=== PATIENT | female | born 1965 | race African-American/Black ===

== ENCOUNTER 2018-07-26 06:32 | Inpatient (IN) | payer MEDICAID ==
[2018-07-26] VITALS (37 sets, daily range): BP systolic 86–141; BP diastolic 29–111
[~2018-07-26] VITALS: Ht 160 cm; Wt 49.9 kg
[2018-07-26] MEDS ORDERED: METHYLPREDNISOLONE SOD SUCC 125 MG/2 ML VIAL IV STA (06:38)
[2018-07-26] MEDS ORDERED: MAGNESIUM 2 G PREMIX 50 ML IV ONE (06:45)
[2018-07-26] MEDS ORDERED: IPRATROPIUM/ALBUTEROL 0.5-3(2.5)MG/3ML NEB HHN ONE (06:45)
[2018-07-26] MEDS ORDERED: SUCCINYLCHOLINE CHLORIDE 200MG/10ML IV ONE ×2 (07:00→13:25)
[2018-07-26] MEDS ORDERED: ETOMIDATE 2MG/ML 10ML VIAL IV ONE ×2 (07:00→13:25)
[2018-07-26] MEDS: PROPOFOL 10MG/ML 100ML 100 ML IV SCH ×2 (07:17→10:20)
[2018-07-26 07:24] LABS: EOSINOPHILS % 11.9 % (0.0-5.0); HEMATOCRIT. 49.2 % (36.0-48.0); HEMOGLOBIN. 15.4 g/dL (12.0-16.0); LYMPHOCYTES % 44.5 % (20.0-50.0); MEAN CORPUSCULAR HEMOGLOBIN 26.1 pg (28.0-32.0); MEAN CORPUSCULAR VOLUME 83.6 fL (81.0-99.0); MEAN PLATELET VOLUME 8.7 fl (7.4-10.4); MONOCYTES % 5.3 % (2.0-8.0); NEUTROPHILS % 37.3 % (40.0-76.0); PLATELET 172 x1000/uL (130-400); RED BLOOD CELL COUNT 5.89 mill/uL (4.2-5.4); RED CELL DISTRIBUTION WIDTH 15.2 % (11.6-14.6)
[2018-07-26 07:31] LABS: CHLORIDE 104 mEq/L (98-107)
[2018-07-26 07:32] LABS: PARTIAL THROMBOPLASTIN TIME 25.3 sec (23.4-31.0); PROTHROMBIN TIME 10.4 sec (9.1-11.1)
[2018-07-26 07:35] LABS: ETHANOL BLOOD < 10 mg/dL
[2018-07-26] MEDS: MIDAZOLAM HCL 2 MG/2 ML VIAL IV ONE ×2 (09:09→09:45)
[2018-07-26 09:10] LABS: BG BASE EXCESS -5.8 mmol/L (-2.0-2.0); BG DEOXYHEMOGLOBIN 0.3 % (0.0-5.0); BG FRACTION INSPIRED OXYGEN 100; BG HCO3 ACT 23.3 mmol/L (22.0-26.0); BG METHEMOGLOBIN 0.4 % (0.0-1.5); BG OXYGEN SATURATION 99.7 % (92.0-98.5); BG OXYHEMOGLOBIN 98.3 % (94.0-97.0); BG PCO2 60.9 mmHg (35.0-45.0); BG PH 7.201 (7.350-7.450); BG PO2 > 602.7 mmHg (75.0-100.0); BG SAMPLE SITE RIGHT BRACHIAL; BG TIDAL VOLUME(mL) 450 mL; BG TOTAL HEMOGLOBIN 15.2 g/dL (12.0-18.0); BG VENT MODE VENT - A/C; BG VENT RATE 14 set
[2018-07-26] MEDS ORDERED: MIDAZOLAM HCL 2 MG/2 ML VIAL ONE (09:15)
[2018-07-26] MEDS ORDERED: MIDAZOLAM HCL 2 MG/2 ML VIAL IV ONE (09:15)
[2018-07-26] MEDS ORDERED: MIDAZOLAM HCL 50 MG in DEXTROSE 5% WATER 40 ML IV ONE ×3 (09:15→16:30)
[2018-07-26] MEDS ORDERED: PANTOPRAZOLE SODIUM 40 MG/VIAL IV ONE (09:15)
[2018-07-26] MEDS ORDERED: PANTOPRAZOLE 80 MG in SODIUM CHLORIDE 0.9% 100 ML IV SCH ×2 (09:15→09:45)
[2018-07-26 10:11] LABS: *AMPHETAMINES SCREEN URINE NEGATIVE (NEGATIVE)
[2018-07-26 10:12] LABS: *BARBITURATES SCREEN URINE NEGATIVE (NEGATIVE); *BENZODIAZEPINES SCREEN URINE NEGATIVE (NEGATIVE); *COCAINE SCREEN URINE PRESUMTIVE POSITIVE (NEGATIVE); CANNABINOID URINE SCREEN NEGATIVE (NEGATIVE); METHADONE URINE SCREEN NEGATIVE (NEGATIVE); OPIATES URINE SCREEN NEGATIVE (NEGATIVE); PHENCYCLIDINE URINE SCREEN NEGATIVE (NEGATIVE)
[2018-07-26] MEDS ORDERED: IPRATROPIUM/ALBUTEROL 0.5-3(2.5)MG/3ML NEB HHN PRN (11:15)
[2018-07-26] MEDS ORDERED: DEXTROSE 50% WATER 50ML SYRINGE IV PRN (11:45)
[2018-07-26] MEDS: BLOOD SUGAR DIAGNOSTIC STRIP TEST SCH ×2 (11:47→18:39)
[2018-07-26] MEDS: IPRATROPIUM/ALBUTEROL 0.5-3(2.5)MG/3ML NEB HHN SCH ×3 (12:00→20:13)
[2018-07-26] MEDS: METHYLPREDNISOLONE SOD SUCC 125 MG/2 ML VIAL IV SCH ×3 (12:00→23:22)
[2018-07-26] MEDS: INSULIN LISPRO 100 UNITS/ML SUBCUT SCH ×2 (13:02→18:20)
[2018-07-26] MEDS: DEXT 5%/LACTATED RINGERS 1,000 ML IV SCH (13:16)
[2018-07-26 13:26] LABS: BG BASE EXCESS -4.3 mmol/L (-2.0-2.0); BG CARBOXYHEMOGLOBIN 0.7 % (0.5-1.5); BG METHEMOGLOBIN 0.3 % (0.0-1.5); BG OXYGEN SATURATION 90.9 % (92.0-98.5); BG PCO2 57.1 mmHg (35.0-45.0); BG PH 7.242 (7.350-7.450); BG PO2 67.8 mmHg (75.0-100.0); BG SAMPLE SITE RIGHT RADIAL; BG TIDAL VOLUME(mL) 450 mL; BG TOTAL HEMOGLOBIN 15.5 g/dL (12.0-18.0); BG VENT MODE VENT - A/C; BG VENT RATE 18 set
[2018-07-26] MEDS ORDERED: ONDANSETRON HCL 4MG/2ML INJ IV PRN (13:30)
[2018-07-26] MEDS ORDERED: DOCUSATE SODIUM 100MG CAPSULE PO PRN (13:30)
[2018-07-26] MEDS ORDERED: MAGNESIUM/ALUMINUM HYDROXIDE/SIMETHICONE 30ML UDC PO PRN (13:30)
[2018-07-26] MEDS ORDERED: CLONIDINE 0.1MG TABLET PO PRN (13:30)
[2018-07-26] MEDS: PROPOFOL 10MG/ML 100ML 100 ML IV PRN (19:04)
[2018-07-26] MEDS ORDERED: FENTANYL CITRATE/PF 500 MCG in SODIUM CHLORIDE 0.9% 40 ML IV PRN (19:30)
[2018-07-26] MEDS: PANTOPRAZOLE 80 MG in SODIUM CHLORIDE 0.9% 100 ML IV SCH (19:30)
[2018-07-26] MEDS: FENTANYL CITRATE/PF 500 MCG in SODIUM CHLORIDE 0.9% 40 ML IV PRN (19:33)
[2018-07-26] MEDS ORDERED: NOREPINEPHRINE 8 MG in DEXT 5% WATER 492 ML IV PRN (20:00)
[2018-07-26] MEDS ORDERED: NOREPINEPHRINE 4 MG in DEXT 5% WATER 246 ML IV PRN (20:00)
[2018-07-26] MEDS: SODIUM CHLORIDE 0.9% 500 ML IV NR ×4 (20:29→23:22)
[2018-07-26] MEDS ORDERED: NA PHOS,M-B/NA PHOS,DI-BA ENEMA 118ML PR PRN (21:00)
[2018-07-26] MEDS: LEVOFLOXACIN 500MG PREMIX 100 ML IV SCH (23:21)
[2018-07-27] VITALS (69 sets, daily range): BP systolic 90–136; BP diastolic 18–95
[2018-07-27] MEDS: IPRATROPIUM/ALBUTEROL 0.5-3(2.5)MG/3ML NEB HHN SCH ×7 (00:44→23:48)
[2018-07-27] MEDS: PROPOFOL 10MG/ML 100ML 100 ML IV PRN ×4 (01:18→20:01)
[2018-07-27] MEDS: DEXT 5%/LACTATED RINGERS 1,000 ML IV SCH (03:23)
[2018-07-27 04:04] LABS: CLARITY URINE CLOUDY (CLEAR); COLOR URINE YELLOW (YELLOW); KETONES URINE NEGATIVE (NEGATIVE); LEUKOCYTE ESTERASE URINE NEGATIVE (NEGATIVE); NITRITE URINE NEGATIVE (NEGATIVE); OCCULT BLOOD URINE 2+ (NEGATIVE); PROTEIN URINE NEGATIVE (NEGATIVE); SPECIFIC GRAVITY URINE 1.014 (1.005-1.030); UROBILINOGEN URINE 0.2 E.U./dL (0.2-1.0)
[2018-07-27] MEDS: FENTANYL CITRATE/PF 500 MCG in SODIUM CHLORIDE 0.9% 40 ML IV PRN ×4 (04:17→23:34)
[2018-07-27] MEDS: PANTOPRAZOLE 80 MG in SODIUM CHLORIDE 0.9% 100 ML IV SCH (05:30)
[2018-07-27] MEDS: INSULIN LISPRO 100 UNITS/ML SUBCUT SCH ×4 (06:00→18:00)
[2018-07-27] MEDS: METHYLPREDNISOLONE SOD SUCC 125 MG/2 ML VIAL IV SCH (06:07)
[2018-07-27] MEDS: BLOOD SUGAR DIAGNOSTIC STRIP TEST SCH ×4 (06:07→18:42)
[2018-07-27 06:53] LABS: BASOPHILS % 0.2 % (0.0-2.0); EOSINOPHILS % 0.1 % (0.0-5.0); HEMATOCRIT. 42.4 % (36.0-48.0); HEMOGLOBIN. 13.5 g/dL (12.0-16.0); LYMPHOCYTES % 10.7 % (20.0-50.0); MEAN CORPUSCULAR HEMOGLOBIN 26.3 pg (28.0-32.0); MEAN CORPUSCULAR VOLUME 82.3 fL (81.0-99.0); MEAN PLATELET VOLUME 8.6 fl (7.4-10.4); MONOCYTES % 6.3 % (2.0-8.0); NEUTROPHILS % 82.7 % (40.0-76.0); PLATELET 138 x1000/uL (130-400); RED BLOOD CELL COUNT 5.15 mill/uL (4.2-5.4); RED CELL DISTRIBUTION WIDTH 15.3 % (11.6-14.6)
[2018-07-27 07:00] LABS: CHLORIDE 111 mEq/L (98-107)
[2018-07-27 07:12] LABS: CREATINE KINASE 119 IU/L (26-192)
[2018-07-27 07:14] LABS: CREATINE KINASE MB FRACTION 4.1 ng/mL (0.5-3.6)
[2018-07-27 08:10] LABS: BG BASE EXCESS -1.4 mmol/L (-2.0-2.0); BG CARBOXYHEMOGLOBIN 0.6 % (0.5-1.5); BG FRACTION INSPIRED OXYGEN 50; BG HCO3 ACT 23.7 mmol/L (22.0-26.0); BG METHEMOGLOBIN 0.1 % (0.0-1.5); BG OXYHEMOGLOBIN 97.3 % (94.0-97.0); BG PCO2 41.1 mmHg (35.0-45.0); BG PH 7.378 (7.350-7.450); BG PO2 110.5 mmHg (75.0-100.0); BG SAMPLE SITE RIGHT BRACHIAL; BG TIDAL VOLUME(mL) 450 mL; BG TOTAL HEMOGLOBIN 13.6 g/dL (12.0-18.0); BG VENT MODE VENT - A/C; BG VENT RATE 22 set
[2018-07-27] MEDS ORDERED: SODIUM POLYSTYRENE SULFONATE 15 G/60 ML BOT NG ONE (09:45)
[2018-07-27] MEDS ORDERED: SODIUM POLYSTYRENE SULFONATE 15 G/60 ML BOT NG NR (10:00)
[2018-07-27] MEDS: METHYLPREDNISOLONE SOD SUCC 40 MG/ML VIAL IV SCH ×2 (10:18→18:43)
[2018-07-27] MEDS: DEXT 5%/0.9% NACL 1,000 ML IV SCH (10:19)
[2018-07-27] MEDS: PHENYTOIN SODIUM 100MG/2ML VIAL IV SCH ×2 (14:24→22:05)
[2018-07-27] MEDS: LEVOFLOXACIN 500MG PREMIX 100 ML IV SCH (20:00)
[2018-07-28] VITALS (35 sets, daily range): BP systolic 82–133; BP diastolic 47–88
[2018-07-28] MEDS: DEXT 5%/0.9% NACL 1,000 ML IV SCH ×3 (01:15→15:57)
[2018-07-28] MEDS: METHYLPREDNISOLONE SOD SUCC 40 MG/ML VIAL IV SCH ×3 (01:49→17:31)
[2018-07-28] MEDS: FENTANYL CITRATE/PF 500 MCG in SODIUM CHLORIDE 0.9% 40 ML IV PRN (03:06)
[2018-07-28] MEDS: IPRATROPIUM/ALBUTEROL 0.5-3(2.5)MG/3ML NEB HHN SCH ×5 (04:12→20:32)
[2018-07-28 05:57] LABS: BASOPHILS % 0.5 % (0.0-2.0); HEMATOCRIT. 37.5 % (36.0-48.0); HEMOGLOBIN. 12.1 g/dL (12.0-16.0); LYMPHOCYTES % 16.4 % (20.0-50.0); MEAN CORPUSCULAR HEMOGLOBIN 26.2 pg (28.0-32.0); MEAN CORPUSCULAR VOLUME 81.4 fL (81.0-99.0); MEAN PLATELET VOLUME 8.9 fl (7.4-10.4); MONOCYTES % 11.1 % (2.0-8.0); PLATELET 139 x1000/uL (130-400); RED BLOOD CELL COUNT 4.61 mill/uL (4.2-5.4)
[2018-07-28 06:19] LABS: CHLORIDE 113 mEq/L (98-107)
[2018-07-28 08:22] LABS: BG CARBOXYHEMOGLOBIN 0.3 % (0.5-1.5); BG DEOXYHEMOGLOBIN 1.8 % (0.0-5.0); BG FRACTION INSPIRED OXYGEN 40; BG HCO3 ACT 25.2 mmol/L (22.0-26.0); BG METHEMOGLOBIN 0.3 % (0.0-1.5); BG OXYGEN SATURATION 98.2 % (92.0-98.5); BG OXYHEMOGLOBIN 97.6 % (94.0-97.0); BG PCO2 43.5 mmHg (35.0-45.0); BG PEEP (cmH2O) 0 cmH2O; BG PH 7.381 (7.350-7.450); BG PO2 129.5 mmHg (75.0-100.0); BG SAMPLE SITE RIGHT RADIAL; BG TIDAL VOLUME(mL) 450 mL; BG VENT MODE VENT - A/C; BG VENT RATE 18 set
[2018-07-28] MEDS: PANTOPRAZOLE SODIUM 40 MG/VIAL IV SCH (09:12)
[2018-07-28] MEDS: PHENYTOIN SODIUM 100MG/2ML VIAL IV SCH ×3 (09:27→21:20)
[2018-07-28 11:56] LABS: BG BASE EXCESS 0.1 mmol/L (-2.0-2.0); BG CARBOXYHEMOGLOBIN 0.3 % (0.5-1.5); BG DEOXYHEMOGLOBIN 4.6 % (0.0-5.0); BG FRACTION INSPIRED OXYGEN 40; BG HCO3 ACT 25.4 mmol/L (22.0-26.0); BG METHEMOGLOBIN 0.2 % (0.0-1.5); BG OXYGEN SATURATION 95.4 % (92.0-98.5); BG OXYHEMOGLOBIN 94.9 % (94.0-97.0); BG PEEP (cmH2O) 0 cmH2O; BG PO2 83.9 mmHg (75.0-100.0); BG PRESSURE SUPPORT 8; BG SAMPLE SITE RIGHT RADIAL; BG TOTAL HEMOGLOBIN 12.4 g/dL (12.0-18.0); BG VENT MODE VENT - CPAP
[2018-07-28] MEDS: INSULIN LISPRO 100 UNITS/ML SUBCUT SCH ×4 (12:00→17:32)
[2018-07-28] MEDS: BLOOD SUGAR DIAGNOSTIC STRIP TEST SCH ×5 (12:25→23:30)
[2018-07-28] MEDS: METRONIDAZOLE 500 MG PREMIX 100 ML IV SCH ×2 (12:41→17:32)
[2018-07-28] MEDS: ACETAMINOPHEN 325MG TABLET PO PRN (17:31)
[2018-07-28] MEDS ORDERED: KETOROLAC 30MG/ML VIAL IV PRN (18:30)
[2018-07-28] MEDS: LEVOFLOXACIN 500MG PREMIX 100 ML IV SCH (20:27)
[2018-07-29] VITALS (19 sets, daily range): BP systolic 98–126; BP diastolic 54–83
[2018-07-29] MEDS: IPRATROPIUM/ALBUTEROL 0.5-3(2.5)MG/3ML NEB HHN SCH ×6 (00:19→21:51)
[2018-07-29] MEDS: METHYLPREDNISOLONE SOD SUCC 40 MG/ML VIAL IV SCH ×3 (01:01→21:20)
[2018-07-29] MEDS: METRONIDAZOLE 500 MG PREMIX 100 ML IV SCH ×3 (01:01→18:30)
[2018-07-29 05:24] LABS: BASOPHILS % 0.3 % (0.0-2.0); HEMATOCRIT. 35.4 % (36.0-48.0); HEMOGLOBIN. 11.4 g/dL (12.0-16.0); LYMPHOCYTES % 9.3 % (20.0-50.0); MEAN CORPUSCULAR HEMOGLOBIN 25.9 pg (28.0-32.0); MEAN CORPUSCULAR VOLUME 80.7 fL (81.0-99.0); MEAN PLATELET VOLUME 9.1 fl (7.4-10.4); MONOCYTES % 4.3 % (2.0-8.0); NEUTROPHILS % 86.1 % (40.0-76.0); PLATELET 136 x1000/uL (130-400); RED BLOOD CELL COUNT 4.39 mill/uL (4.2-5.4); RED CELL DISTRIBUTION WIDTH 14.9 % (11.6-14.6)
[2018-07-29 05:43] LABS: CHLORIDE 107 mEq/L (98-107)
[2018-07-29 05:46] LABS: PHOSPHORUS 2.4 mg/dL (2.5-4.9)
[2018-07-29] MEDS: INSULIN LISPRO 100 UNITS/ML SUBCUT SCH ×4 (06:00→18:00)
[2018-07-29] MEDS: BLOOD SUGAR DIAGNOSTIC STRIP TEST SCH ×4 (06:14→23:53)
[2018-07-29] MEDS: PHENYTOIN SODIUM 100MG/2ML VIAL IV SCH ×3 (06:18→21:24)
[2018-07-29] MEDS: DEXT 5%/0.9% NACL 1,000 ML IV SCH (06:27)
[2018-07-29] MEDS: PANTOPRAZOLE SODIUM 40 MG/VIAL IV SCH (08:51)
[2018-07-29] MEDS ORDERED: MAGNESIUM 2 G PREMIX 50 ML IV ONE (10:15)
[2018-07-29] MEDS ORDERED: MAGNESIUM SULFATE 2 GM in DEXTROSE 5% WATER 50 ML IV NR (11:30)
[2018-07-29] MEDS: ACETAMINOPHEN 325MG TABLET PO PRN (17:23)
[2018-07-29] MEDS: GUAIFENESIN 200MG/10ML SUGAR FREE UDC PO PRN ×2 (17:24→23:53)
[2018-07-29] MEDS: LEVOFLOXACIN 500MG PREMIX 100 ML IV SCH (21:20)
[2018-07-30] VITALS (7 sets, daily range): BP systolic 105–115; BP diastolic 50–72
[2018-07-30] MEDS: IPRATROPIUM/ALBUTEROL 0.5-3(2.5)MG/3ML NEB HHN SCH ×5 (00:45→16:30)
[2018-07-30] MEDS: METRONIDAZOLE 500 MG PREMIX 100 ML IV SCH ×3 (02:04→18:18)
[2018-07-30] MEDS: INSULIN LISPRO 100 UNITS/ML SUBCUT SCH ×4 (06:00→18:00)
[2018-07-30] MEDS: BLOOD SUGAR DIAGNOSTIC STRIP TEST SCH ×3 (06:00→18:00)
[2018-07-30] MEDS: GUAIFENESIN 200MG/10ML SUGAR FREE UDC PO PRN ×2 (06:42→15:34)
[2018-07-30] MEDS: PHENYTOIN SODIUM 100MG/2ML VIAL IV SCH (06:54)
[2018-07-30] MEDS: METHYLPREDNISOLONE SOD SUCC 40 MG/ML VIAL IV SCH (09:23)
[2018-07-30] MEDS: PANTOPRAZOLE SODIUM 40 MG/VIAL IV SCH (09:23)
[2018-07-30] MEDS: ACETAMINOPHEN 325MG TABLET PO PRN (14:09)
[2018-07-30] MEDS: PHENYTOIN SODIUM EXTENDED 100MG CAPSULE PO SCH ×2 (15:34→20:48)
[2018-07-30] MEDS: BENZONATATE 100MG CAPSULE PO SCH ×2 (18:21→20:48)
[2018-07-30] MEDS: LEVOFLOXACIN 500MG PREMIX 100 ML IV SCH (20:49)
[2018-07-30] MEDS: DIPHENHYDRAMINE 50MG/ML VIAL IV PRN (20:59)
[2018-07-30] MEDS ORDERED: LEVOFLOXACIN 500MG TABLET PO SCH (21:00)
[2018-07-31] VITALS: BP 107/66
[2018-07-31] MEDS: IPRATROPIUM/ALBUTEROL 0.5-3(2.5)MG/3ML NEB HHN SCH ×5 (00:48→16:29)
[2018-07-31] MEDS: METRONIDAZOLE 500 MG PREMIX 100 ML IV SCH ×2 (01:27→11:11)
[2018-07-31] MEDS: GUAIFENESIN 200MG/10ML SUGAR FREE UDC PO PRN (02:03)
[2018-07-31 04:00] VITALS: BP 115/60
[2018-07-31] MEDS: INSULIN LISPRO 100 UNITS/ML SUBCUT SCH ×4 (06:00→17:19)
[2018-07-31] MEDS: PHENYTOIN SODIUM EXTENDED 100MG CAPSULE PO SCH ×2 (06:24→14:13)
[2018-07-31] MEDS: BENZONATATE 100MG CAPSULE PO SCH ×2 (06:24→14:13)
[2018-07-31] MEDS: BLOOD SUGAR DIAGNOSTIC STRIP TEST SCH ×4 (06:27→17:20)
[2018-07-31 08:00] VITALS: BP 100/46
[2018-07-31] MEDS: DIPHENHYDRAMINE 50MG/ML VIAL IV PRN (08:59)
[2018-07-31] MEDS ORDERED: FAMOTIDINE 20MG/2ML VIAL IV SCH (09:00)
[2018-07-31] MEDS ORDERED: METHYLPREDNISOLONE SOD SUCC 40 MG/ML VIAL IV SCH (09:00)
[2018-07-31 12:27] VITALS: BP_SYST 102; BP_SYST 156; BP_DIAS 58; BP_DIAS 78
[2018-07-31] MEDS: METRONIDAZOLE 500MG TABLET PO SCH ×2 (15:52→15:53)
[2018-07-31 16:13] VITALS: BP 104/56
[2018-07-31] MEDS ORDERED: LEVOFLOXACIN 500MG TABLET PO SCH (21:00)
== END 2018-07-31 17:25 | disposition home or self-care (01) | DRG 816 ==
LOC: ER 06:32 → EDBEDREQTM 06:57 → EDBEDREQ 06:57 → EDBEDREQSVC 06:57 → EDBEDREQ 09:11 → EDBEDREQTM 09:11 → ENRESERV 15:22 → EDBD 17:29 → CVICU 17:29 → 6WST 07-29 18:18
PROVIDERS: ADMIT Internal Medicine; ATTEND Internal Medicine
PROC: 5A1945Z Respiratory Ventilation, 24-96 Consecutive Hours (ICD-10-PCS; principal; 2018-07-26)
PROC: 0BH17EZ Insertion of Endotracheal Airway into Trachea, Via Natural or Artificial Opening (ICD-10-PCS; 2018-07-26)
PROC: 5A09357 Assistance with Respiratory Ventilation, Less than 24 Consecutive Hours, Continuous Positive Airway Pressure (ICD-10-PCS; 2018-07-26)
DX: T40.5X1A Poisoning by cocaine, accidental (unintentional), initial encounter (principal); J96.00 Acute respiratory failure, unspecified whether with hypoxia or hypercapnia; J69.0 Pneumonitis due to inhalation of food and vomit; J68.0 Bronchitis and pneumonitis due to chemicals, gases, fumes and vapors; E87.2 Acidosis; D72.1 Eosinophilia; E87.5 Hyperkalemia; R00.1 Bradycardia, unspecified; R73.9 Hyperglycemia, unspecified; Y92.89 Other specified places as the place of occurrence of the external cause; G40.89 Other seizures
CPT/HCPCS: 31500; 36415; 36600; 71045; 80048; 80061; 80185; 80305; 82375; 82550; 82553; 82805; 82962; 83036; 83735; 83880; 84100; 84478; 84484; 86850; 86900; 87070; 87804; 92610; 93970; 94002; 94003; 94640; 94660; 96361; 96365; 96367; 96375; 97162; 99291; C9113; G0482; J0330; J1165; J1200; J1815; J1956; J2250; J2704; J2920; J2930; J3010; J3475; J3490; J7040; J7042; J7050; J7060; J7620

== ENCOUNTER 2018-11-11 19:49 | Emergency (ER) | payer MEDICAID ==
[~2018-11-11] VITALS: Ht 170.2 cm; Wt 64.0 kg
[2018-11-11 19:55] VITALS: BP 106/48
== END 2018-11-12 00:30 | disposition left against medical advice (07) ==
LOC: ER 19:49
DX: Z53.21 Procedure and treatment not carried out due to patient leaving prior to being seen by health care provider (principal)

== ENCOUNTER 2020-02-01 20:13 | Emergency (ER) | payer MEDICAID ==
[~2020-02-01] VITALS: Ht 170.2 cm; Wt 59.0 kg
[2020-02-01] MEDS ORDERED: ONDANSETRON HCL 4MG/2ML INJ IV STA (20:49)
[2020-02-01] MEDS ORDERED: SODIUM CHLORIDE 0.9% 1,000 ML IV ONE (20:49)
[2020-02-01] MEDS ORDERED: LORAZEPAM 2MG/ML CPJ IV ONE (21:00)
[2020-02-01 22:38] LABS: BASOPHILS % 1.7 % (0.0-2.0); EOSINOPHILS % 3.6 % (0.0-5.0); HEMATOCRIT. 41.2 % (36.0-48.0); HEMOGLOBIN. 13.7 g/dL (12.0-16.0); LYMPHOCYTES % 28.4 % (20.0-50.0); MEAN CORPUSCULAR HEMOGLOBIN 26.5 pg (28.0-32.0); MEAN CORPUSCULAR VOLUME 79.4 fL (81.0-99.0); MEAN PLATELET VOLUME 9.2 fl (7.4-10.4); MONOCYTES % 7.5 % (2.0-8.0); NEUTROPHILS % 58.8 % (40.0-76.0); PLATELET 166 x1000/uL (130-400); RED BLOOD CELL COUNT 5.19 mill/uL (4.2-5.4); RED CELL DISTRIBUTION WIDTH 15.3 % (11.6-14.6)
[2020-02-01 22:44] LABS: CHLORIDE 109 mEq/L (98-107)
[2020-02-01 22:45] LABS: HCG SCREEN NEGATIVE
[2020-02-01 22:48] LABS: ETHANOL BLOOD < 10 mg/dL
[2020-02-01 23:38] LABS: *AMPHETAMINES SCREEN URINE NEGATIVE (NEGATIVE); *BARBITURATES SCREEN URINE NEGATIVE (NEGATIVE); *BENZODIAZEPINES SCREEN URINE NEGATIVE (NEGATIVE); *COCAINE SCREEN URINE PRESUMTIVE POSITIVE (NEGATIVE); CANNABINOID URINE SCREEN NEGATIVE (NEGATIVE); METHADONE URINE SCREEN NEGATIVE (NEGATIVE); OPIATES URINE SCREEN NEGATIVE (NEGATIVE); PHENCYCLIDINE URINE SCREEN NEGATIVE (NEGATIVE)
[2020-02-02 01:52] VITALS: BP 125/72
== END 2020-02-02 02:08 | disposition home or self-care (01) ==
LOC: ER 20:13
DX: T40.5X1A Poisoning by cocaine, accidental (unintentional), initial encounter (principal); G92 Toxic encephalopathy; Y92.89 Other specified places as the place of occurrence of the external cause; R41.82 Altered mental status, unspecified
CPT/HCPCS: 36415; 70450; 71045; 80053; 80305; 80320; 84484; 84703; 85025; 93005; 96361; 96374; 96375; 99285; J2060; J2405; J7030; G0480

== ENCOUNTER 2020-03-01 07:05 | Inpatient (IN) | payer MEDICAID ==
[~2020-03-01] VITALS: Ht 167.6 cm; Wt 59.0 kg
[2020-03-01] MEDS ORDERED: SODIUM CHLORIDE 0.9% 1,000 ML IV ONE (07:20)
[2020-03-01] MEDS ORDERED: FAMOTIDINE 20MG/2ML VIAL IV ONE (07:30)
[2020-03-01] MEDS ORDERED: ACETAMINOPHEN 650MG SUPP PR ONE (07:30)
[2020-03-01] MEDS ORDERED: ONDANSETRON HCL 4MG/2ML INJ IV ONE (07:30)
[2020-03-01] MEDS ORDERED: CEFTRIAXONE 1 G PREMIX 50 ML IV ONE (09:15)
[2020-03-01] MEDS ORDERED: ACETAMINOPHEN 325MG TABLET PO ONE (09:45)
[2020-03-01 09:47] LABS: HEMATOCRIT. 43.9 % (36.0-48.0); HEMOGLOBIN. 14.5 g/dL (12.0-16.0); MEAN CORPUSCULAR HEMOGLOBIN 26.1 pg (28.0-32.0); MEAN CORPUSCULAR VOLUME 78.7 fL (81.0-99.0); MEAN PLATELET VOLUME 9.3 fl (7.4-10.4); PLATELET 157 x1000/uL (130-400); RED BLOOD CELL COUNT 5.57 mill/uL (4.2-5.4); RED CELL DISTRIBUTION WIDTH 14.9 % (11.6-14.6)
[2020-03-01 09:51] LABS: CLARITY URINE TURBID (CLEAR); COLOR URINE YELLOW (YELLOW); KETONES URINE TRACE (NEGATIVE); LEUKOCYTE ESTERASE URINE 3+ (NEGATIVE); NITRITE URINE POSITIVE (NEGATIVE); OCCULT BLOOD URINE 3+ (NEGATIVE); PH URINE 5.5 (4.5-8.0); PROTEIN URINE 2+ (NEGATIVE); SPECIFIC GRAVITY URINE 1.013 (1.005-1.030)
[2020-03-01 09:54] LABS: PROTHROMBIN TIME 11.1 sec (9.6-11.0)
[2020-03-01 09:57] LABS: CHLORIDE 105 mEq/L (98-107)
[2020-03-01] MEDS ORDERED: SODIUM CHLORIDE 0.9% 1000ML BAG (SEPSIS BOLUS) IV ONE (10:00)
[2020-03-01] MEDS ORDERED: LEVOFLOXACIN 500MG PREMIX 100 ML IV ONE (10:00)
[2020-03-01 10:01] LABS: ETHANOL BLOOD < 10 mg/dL
[2020-03-01 10:12] LABS: *AMPHETAMINES SCREEN URINE NEGATIVE (NEGATIVE); *BARBITURATES SCREEN URINE NEGATIVE (NEGATIVE); *BENZODIAZEPINES SCREEN URINE NEGATIVE (NEGATIVE); *COCAINE SCREEN URINE PRESUMTIVE POSITIVE (NEGATIVE); CANNABINOID URINE SCREEN NEGATIVE (NEGATIVE); METHADONE URINE SCREEN NEGATIVE (NEGATIVE); OPIATES URINE SCREEN NEGATIVE (NEGATIVE); PHENCYCLIDINE URINE SCREEN NEGATIVE (NEGATIVE)
[2020-03-01 10:49] LABS: PLATELET ESTIMATE NORMAL
[2020-03-01] MEDS ORDERED: ACETAMINOPHEN 500MG TABLET PO SCH (15:45)
[2020-03-01] MEDS ORDERED: CEFEPIME 1,000 MG in DEXTROSE 5% WATER 50 ML IV NR (18:30)
[2020-03-01] MEDS ORDERED: ONDANSETRON HCL 4MG/2ML INJ IV PRN (22:45)
[2020-03-01] MEDS ORDERED: CLONIDINE 0.1MG TABLET PO PRN (22:45)
[2020-03-01 23:10] VITALS: BP 99/56
[2020-03-02] VITALS: BP 99/56
[2020-03-02 04:00] VITALS: BP 115/60
[2020-03-02] MEDS: ACETAMINOPHEN 325MG TABLET PO PRN ×3 (04:40→20:32)
[2020-03-02 06:16] LABS: CHLORIDE 107 mEq/L (98-107)
[2020-03-02 06:20] LABS: MEAN CORPUSCULAR HEMOGLOBIN 26.3 pg (28.0-32.0); MEAN CORPUSCULAR VOLUME 79.1 fL (81.0-99.0); MEAN PLATELET VOLUME 9.6 fl (7.4-10.4); PLATELET 131 x1000/uL (130-400); RED BLOOD CELL COUNT 4.55 mill/uL (4.2-5.4); RED CELL DISTRIBUTION WIDTH 14.7 % (11.6-14.6)
[2020-03-02 08:00] VITALS: BP 108/66
[2020-03-02] MEDS ORDERED: CEFEPIME 1,000 MG in DEXTROSE 5% WATER 50 ML IV SCH ×2 (09:00→12:00)
[2020-03-02] MEDS: ENOXAPARIN 40MG/0.4ML SYR SUBCUT SCH (09:07)
[2020-03-02 12:00] VITALS: BP 113/50
[2020-03-02] MEDS: SODIUM CHLORIDE 0.9% 1,000 ML IV SCH ×2 (12:31→23:52)
[2020-03-02 14:05] LABS: PLATELET ESTIMATE NORMAL
[2020-03-02] MEDS ORDERED: AMIKACIN 500MG in SODIUM CHLORIDE 0.9% 100ML IV SCH (15:00)
[2020-03-02 16:00] VITALS: BP 110/47
[2020-03-02 20:00] VITALS: BP 129/47
[2020-03-02] MEDS: CEFEPIME 2,000 MG in DEXT 5% WATER 100 ML IV SCH (20:32)
[2020-03-03] VITALS: BP 97/51
[2020-03-03 04:00] VITALS: BP 116/56
[2020-03-03] MEDS: ACETAMINOPHEN 325MG TABLET PO PRN ×2 (05:24→16:58)
[2020-03-03] MEDS: SODIUM CHLORIDE 0.9% 1,000 ML IV SCH ×3 (07:26→21:31)
[2020-03-03 08:30] VITALS: BP 103/66
[2020-03-03] MEDS: CEFEPIME 2,000 MG in DEXT 5% WATER 100 ML IV SCH ×2 (09:05→20:15)
[2020-03-03] MEDS: ENOXAPARIN 40MG/0.4ML SYR SUBCUT SCH (09:13)
[2020-03-03 12:00] VITALS: BP 115/58
[2020-03-03 16:00] VITALS: BP 105/48
[2020-03-03] MEDS ORDERED: ACETAMINOPHEN 325MG TABLET PO PRN (18:45)
[2020-03-03 20:00] VITALS: BP 112/63
[2020-03-04] VITALS: BP 125/75
[2020-03-04 04:00] VITALS: BP 135/68
[2020-03-04] MEDS: ACETAMINOPHEN 325MG TABLET PO PRN ×2 (04:13→09:21)
[2020-03-04] MEDS: CEFAZOLIN 2,000 MG in DEXT 5% WATER 100 ML IV SCH ×2 (06:28→15:46)
[2020-03-04 06:39] LABS: HEMATOCRIT. 34.6 % (36.0-48.0); HEMOGLOBIN. 11.5 g/dL (12.0-16.0); MEAN CORPUSCULAR HEMOGLOBIN 26.4 pg (28.0-32.0); MEAN CORPUSCULAR VOLUME 79.4 fL (81.0-99.0); MEAN PLATELET VOLUME 9.8 fl (7.4-10.4); PLATELET 151 x1000/uL (130-400); RED BLOOD CELL COUNT 4.36 mill/uL (4.2-5.4)
[2020-03-04 08:00] VITALS: BP 97/61
[2020-03-04 08:55] LABS: CHLORIDE 106 mEq/L (98-107)
[2020-03-04] MEDS: ENOXAPARIN 40MG/0.4ML SYR SUBCUT SCH (09:20)
[2020-03-04 12:00] VITALS: BP 104/49
[2020-03-04 16:00] VITALS: BP 95/71
[2020-03-04 18:25] LABS: PLATELET ESTIMATE NORMAL
[2020-03-05 06:07] LABS: HIV SCREEN 4G Non Reactive (Non Reactive)
== END 2020-03-04 17:25 | disposition home or self-care (01) | DRG 720 ==
LOC: ER 07:05 → EDBEDREQ 11:44 → EDBEDREQTM 11:44 → EDBEDREQSVC 11:44 → EDBEDREQTM 12:02 → EDBEDREQSVC 12:02 → ENRESERV 21:02 → 6EST 23:14 → 7WST 03-02 09:47 → 6WST 03-03 04:51
PROVIDERS: ADMIT Internal Medicine; ATTEND Internal Medicine
DX: A41.51 Sepsis due to Escherichia coli [E. coli] (principal); E87.1 Hypo-osmolality and hyponatremia; J44.9 Chronic obstructive pulmonary disease, unspecified; F14.90 Cocaine use, unspecified, uncomplicated; N10 Acute pyelonephritis; R91.1 Solitary pulmonary nodule; Z03.818 Encounter for observation for suspected exposure to other biological agents ruled out; Z87.891 Personal history of nicotine dependence; Z71.51 Drug abuse counseling and surveillance of drug abuser
CPT/HCPCS: 36415; 71045; 74176; 80048; 80053; 80305; 80320; 81003; 83605; 83880; 84145; 84484; 85025; 87077; 87186; 87389; 93005; 93970; 96365; 99291; J0278; J0690; J0692; J0696; J1650; J1956; J2405; J3490; J7030; J7050; J7060; U0003; G0480

== ENCOUNTER 2021-01-21 08:59 | Emergency (ER) | payer MEDICAID ==
[~2021-01-21] VITALS: Ht 167.6 cm; Wt 52.0 kg
[2021-01-21] MEDS ORDERED: ACETAMINOPHEN 325MG TABLET PO ONE (10:15)
[2021-01-21] MEDS ORDERED: CEPHALEXIN 250MG CAPSULE PO ONE (10:15)
[2021-01-21] MEDS ORDERED: SULFAMETHOXAZOLE/TRIMETHOPRIM 800/160MG TABLET PO ONE (10:15)
[2021-01-21] MEDS ORDERED: CEPH500C2 MT (11:07)
[2021-01-21] MEDS ORDERED: ACET-2708 MT (11:07)
[2021-01-21] MEDS ORDERED: SULF1TAB48 MT (11:07)
[2021-01-21 11:52] VITALS: BP 131/80
== END 2021-01-21 11:53 | disposition home or self-care (01) ==
LOC: ER 08:59
DX: H60.12 Cellulitis of left external ear (principal); S20.212A Contusion of left front wall of thorax, initial encounter; F14.10 Cocaine abuse, uncomplicated; J44.1 Chronic obstructive pulmonary disease with (acute) exacerbation; J45.909 Unspecified asthma, uncomplicated; W57.XXXA Bitten or stung by nonvenomous insect and other nonvenomous arthropods, initial encounter; Y93.89 Activity, other specified; Y92.89 Other specified places as the place of occurrence of the external cause; Y99.8 Other external cause status
CPT/HCPCS: 71101; 99284